=== PATIENT | female | born 1980 | race African-American/Black ===

== ENCOUNTER 2024-10-04 09:00 | Emergency (ER) | payer BC ==
--- NOTE | 2024-10-04 09:59 | ER ---
Nurse's Notes [facility] Name: Miriam Yoder Age: 44 yrs Sex: Female : 1980 Arrival Date: 10/04/2024 Time: 09:00 Bed 7 Private MD: Diagnosis: Essential (primary) hypertension;Headache Presentation: 10/04 09:21 Chief complaint: Patient states: Check blood pressure and it was high and the BP cuff jl7 reported that he HR was irregular, pt denies palpitation, denies shortness of breath, reports PEACOCK, took prescribed Losartan-hctz 100mg-25mg at 0745. Coronavirus screen: At this time, the client does not indicate any symptoms associated with coronavirus-19. Ebola Screen: No symptoms or risks identified at this time. Initial Sepsis Screen: Does the patient meet any 2 criteria? No. Patient's initial sepsis screen is negative. Does the patient have a suspected source of infection? No. Patient's initial sepsis screen is negative. Risk Assessment: Do you want to hurt yourself or someone else? Patient reports no desire to harm self or others. Onset of symptoms was October 04, 2024. 09:21 Method Of Arrival: Ambulatory 7 09:21 Acuity: JESENIA 2 jl7 Triage Assessment: 09:24 General: Appears in no apparent distress. uncomfortable, Behavior is calm, cooperative, jl7 appropriate for age. Pain: Complains of pain in PEACOCK and back Pain currently is 7 out of 10 on a pain scale. Neuro: Level of Consciousness is awake, alert, obeys commands, Oriented to person, place, time, situation. Cardiovascular: Patient's skin is warm and dry. Respiratory: Airway is patent Respiratory effort is even, unlabored, Respiratory pattern is regular, symmetrical. Derm: Skin is pink, warm \T\ dry. 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 - Infectious Disease History:: Denies. - Social history:: Smoking status: Patient denies any tobacco usage or history of. Screenin:17 [facility] ED Fall Risk Assessment (Adult) History of falling in the last 3 months, jl7 including since admission No falls in past 3 months (0 pts) Confusion or Disorientation No (0 pts) Intoxicated or Sedated No (0 pts) Impaired Gait No (0 pts) Mobility Assist Device Used No (0 pt) Altered Elimination No (0 pt) Score/Fall Risk Level 0 - 2 = Low Risk Oriented to surroundings, Maintained a safe environment. Abuse screen: Denies threats or abuse. Denies injuries from another. Nutritional screening: No deficits noted. Tuberculosis screening: No symptoms or risk factors identified. Vital Signs: 09:21 BP 182 / 117; Pulse 78; Resp 15; Temp 98.7; Pulse Ox 95% ; Weight 154.22 kg; Height 5 jl7 ft. 5 in. ; Pain 7/10; 10:17 BP 164 / 107; Pulse 75; Resp 15; Pulse Ox 100% ; jl7 09:21 Body Mass Index 56.58 (154.22 kg, 165.1 cm) jl7 09:21 Pain Scale: Adult jl7 ED Course: 09:03 Patient arrived in ED. im 09:07 Lauren Mathur MD is Attending Physician. gb1 09:08 Narciso Huang, RN is Primary Nurse. jl7 09:10 EKG done, by ED staff, reviewed by Lauren Mathur MD. jl7 09:24 Triage completed. jl7 09:24 Arm band placed on right wrist. jl7 10:17 Patient has correct armband on for positive identification. Provided Education on: use jl7 of call deleon. Cardiac monitoring not applicable on this patient. 10:17 No provider procedures requiring assistance completed. Patient did not have IV access jl7 during this emergency room visit. Patient maintains SpO2 saturation greater than 95% on room air. Administered Medications: 10:16 Drug: Ibuprofen PO 800 mg PO once Route: PO; jl7 10:16 Follow up: Response: Medication administered at discharge. jl7 Medication: 10:17 VIS not applicable for this client. jl7 Outcome: 09:59 Discharge ordered by . gb1 10:20 Discharged to home ambulatory, jl7 10:20 Condition: stable 10:20 Discharge instructions given to patient, Instructed on discharge instructions, follow up and referral plans. Demonstrated understanding of instructions, follow-up care, 10:20 Patient left the ED. jl7 Signatures: Narciso Huang RN RN jl7 Merly Taveras Gina, MD MD gb1 Corrections: (The following items were deleted from the chart) :25 09:24 PMHx: Hypertensive disorder; jared jl7
--- NOTE | 2024-10-04 09:59 | EDPHYS ---
Physician Documentation [facility] Name: Miriam Yoder Age: 44 yrs Sex: Female : 1980 Arrival Date: 10/04/2024 Time: 09:00 Bed 7 Private MD: ED Physician Lauren Mathur HPI: 10/04 09:54 This 44 yrs old Black Female presents to ER via Ambulatory with complaints of High gb1 Blood Pressure, Irregular Pulse. 09:54 Ms. Edmondson is a 44-year-old -[place] female that comes with a headache this gb1 morning. She has been very stressed that she recently moved into a new apartment. She took her blood pressure medicine today and losartan with hydrochlorothiazide this morning as scheduled. She denies any fever or chills, chest pain or shortness of breath. She denies any cough or new congestion. She denies any neck pain. 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 - Infectious Disease History:: Denies. - Social history:: Smoking status: Patient denies any tobacco usage or history of. Exam: 09:54 Constitutional: This is a well developed, well nourished patient who is awake, alert, gb1 and in no acute distress. Head/Face: Normocephalic, atraumatic. Eyes: Pupils equal round and reactive to light, extra-ocular motions intact. Lids and lashes normal. Conjunctiva and sclera are non-icteric and not injected. Cornea within normal limits. Periorbital areas with no swelling, redness, or edema. ENT: Nares patent. No nasal discharge, no septal abnormalities noted. Tympanic membranes are normal and external auditory canals are clear. Oropharynx with no redness, swelling, or masses, exudates, or evidence of obstruction, uvula midline. Mucous membranes moist. Neck: Trachea midline, no thyromegaly or masses palpated, and no cervical lymphadenopathy. Supple, full range of motion without nuchal rigidity, or vertebral point tenderness. No Meningismus. Chest/axilla: Normal chest wall appearance and motion. Nontender with no deformity. No lesions are appreciated. Cardiovascular: Regular rate and rhythm with a normal S1 and S2. No gallops, murmurs, or rubs. Normal PMI, no JVD. No pulse deficits. Respiratory: Lungs have equal breath sounds bilaterally, clear to auscultation and percussion. No rales, rhonchi or wheezes noted. No increased work of breathing, no retractions or nasal flaring. Abdomen/GI: Soft, non-tender, with normal bowel sounds. No distension or tympany. No guarding or rebound. No evidence of tenderness throughout. Back: No spinal tenderness. No costovertebral tenderness. Full range of motion. Skin: Warm, dry with normal turgor. Normal color with no rashes, no lesions, and no evidence of cellulitis. MS/ Extremity: Pulses equal, no cyanosis. Neurovascular intact. Full, normal range of motion. Neuro: Awake and alert, GCS 15, oriented to person, place, time, and situation. Cranial nerves II-XII grossly intact. Motor strength 5/5 in all extremities. Sensory grossly intact. Cerebellar exam normal. Normal gait. Vital Signs: 09:21 BP 182 / 117; Pulse 78; Resp 15; Temp 98.7; Pulse Ox 95% ; Weight 154.22 kg; Height 5 jl7 ft. 5 in. ; Pain 7/10; 10:17 BP 164 / 107; Pulse 75; Resp 15; Pulse Ox 100% ; jl7 09:21 Body Mass Index 56.58 (154.22 kg, 165.1 cm) jl7 09:21 Pain Scale: Adult jl7 MDM: 09:41 Medical Screening Exam initiated gb1 09:54 ED course: Transient 44-year-old male with headache likely secondary to elevated blood gb1 pressure. The headache is not first, sudden, not worst, maximal in onset. 44-year-old female 44-year-old female 44-year-old female 44-year-old female 44 year old female with PEACOCK with no fever, no chest pain or sob. PEACOCK is not first, worst, sudden or max in onset. No fever or nuchal rigidity. Doubt SAH or meningitis. Pt is severely morbidly obese, has been stressed and is likely non-compliant on her BP medication. I have encouraged her to take her meds as prescribed and get more regular exercise. She also reports her HgAIC value is in the pre-diabetic range as well. We talked about improving her diet and decreasing salt as well.. Administered Medications: 10:16 Drug: Ibuprofen PO 800 mg PO once Route: PO; jl7 10:16 Follow up: Response: Medication administered at discharge. jl7 Disposition Summary: 10/04/24 09:59 Discharge Ordered Notes: Location: Home gb1 Problem: an acute exacerbation gb1 Symptoms: have improved gb1 Condition: Stable gb1 Diagnosis - Essential (primary) hypertension gb1 - Headache gb1 Followup: gb1 - With: Private Physician - When: - Reason: If symptoms return, Re-evaluation by your physician Discharge Instructions: - Discharge Summary Sheet gb1 - Cooking with Less Salt gb1 - Hypertension, Adult gb1 Forms: - Medication Reconciliation Form gb1 - Antibiotic Education gb1 - Prescription Opioid Use gb1 - Patient Portal Instructions gb1 - Leadership Thank You Letter gb1 Signatures: Narciso Huang RN RN jl7 Lauren Mathur MD MD gb1 Corrections: (The following items were deleted from the chart) 09:24 PMHx: Hypertensive disorder; jl7 jl7
[2024-10-04] MEDS ORDERED: IBUPROFEN 400 MG TAB ONE (10:10)
[2024-10-04 10:35] VITALS: BP 164/107; TEMP 98.7; O2SAT 100
--- NOTE | 2024-10-06 12:43 | EKG ---
Test Date: 2024-10-04 Test Time: 09:15:19 Finished Carpet Inspector: MELYSSA MEASUREMENT RESULTS: Intervals: Rate: 75 WA: 164 QRSD: 94 QT: 436 QTc: 486 Sallis: P: 49 WA: 164 QRS: 39 T: 25 INTERPRETIVE STATEMENTS: Normal sinus rhythm Prolonged QT Abnormal ECG No previous ECG available for comparison Electronically Signed On 10-06-24 12:37:50 CDT by Neil Castro
== END 2024-10-04 10:20 | disposition home or self-care (01) ==
LOC: ER 09:00
DX: I10 Essential (primary) hypertension (principal); R51.9 Headache, unspecified
CPT/HCPCS: 93005; 99283